=== PATIENT | male | born 1975 | race Caucasian/White ===

== ENCOUNTER 2022-08-10 04:01 | Emergency (ER) | payer OTHER ==
[~2022-08-10] VITALS: Ht 180.3 cm; Wt 124.7 kg
[2022-08-10] MEDS ORDERED: METHOCARBAMOL (500MG) 500 MG TABLET ONE (05:22)
[2022-08-10] MEDS ORDERED: KETOROLAC TROMETHAMINE INJ 30 MG/ML VIAL ONE (05:22)
--- NOTE | 2022-08-10 05:29 | NUR ---
bibs lower back pain x wed worst tonight. On room air, breathing normally and unlabored. Kept comfortable, will continue to monitor accordingly.
[2022-08-10] MEDS ORDERED: KETOROLAC TROMETHAMINE INJ 30 MG/ML VIAL IM ONE (05:30)
[2022-08-10] MEDS ORDERED: METHOCARBAMOL (500MG) 500 MG TABLET PO ONE (05:30)
[2022-08-10] MEDS ORDERED: LIDOCAINE 5% (PATCH) 1 EA PATCH TP SCH (05:30)
[2022-08-10] MEDS ORDERED: METH-649 PO (06:25)
--- NOTE | 2022-08-10 06:30 | NUR ---
Patient discharged to home in stable condition. Written and verbal after care instructions given. Patient verbalizes understanding of instruction. Pt ambulatory with a steady gait
[2022-08-10 06:31] VITALS: BP 145/75
== END 2022-08-10 06:40 | disposition home or self-care (01) ==
LOC: ER 04:05
DX: M54.50 Low back pain, unspecified (principal); Z79.899 Other long term (current) drug therapy
CPT/HCPCS: 99283; 96372; J1885

== ENCOUNTER 2023-10-26 08:54 | Emergency (ER) | payer BC ==
[~2023-10-26] VITALS: Ht 180.3 cm; Wt 127.0 kg
[~2023-10-26 08:54] MED LIST: METH-649 PO
[2023-10-26] MEDS ORDERED: ONDANSETRON HCL/PF 4 MG/2 ML VIAL ONE (09:22)
[2023-10-26] MEDS: LIDOCAINE VISCOUS 2% UD 15 ML UDC MM ONE (09:30)
[2023-10-26] MEDS: ONDANSETRON HCL/PF 4 MG/2 ML VIAL IVP ONE (09:30)
[2023-10-26] MEDS: FAMOTIDINE/PF INJ 20 MG/2 ML VIAL IV ONE (09:30)
[2023-10-26] MEDS: IV NS 0.9% 1,000 ML BAG IV ONE ×2 (09:30→10:30)
[2023-10-26] MEDS: MAG HYDROX/AL HYDROX/SIMETH 30 ML UDC PO ONE (09:30)
[2023-10-26] MEDS ORDERED: FAMOTIDINE/PF INJ 20 MG/2 ML VIAL IV ONE (09:35)
[2023-10-26 09:54] LABS: BASOPHILS # (AUTO) 0.1 K/uL (0.0-0.2); BASOPHILS % (AUTO) 0.6 % (0.0-2.0); EOSINOPHILS # (AUTO) 0.3 K/uL (0.0-0.7); EOSINOPHILS % (AUTO) 1.5 % (0.0-6.0); HEMATOCRIT 47 % (39-51); HEMOGLOBIN 15.6 g/dL (13.5-17.5); LYMPHOCYTES % (AUTO) 17.4 % (20.0-44.0); MEAN CORPUSCULAR HEMOGLOBIN 28 PG (26.0-33.0); MEAN CORPUSCULAR HGB CONC 33 g/dl (31.0-36.0); MEAN CORPUSCULAR VOLUME 86 fL (80-96); MONOCYTES # (AUTO) 0.7 K/uL (0.1-1.30); MONOCYTES % (AUTO) 4.3 % (2.0-12.0); NEUTROPHILS # (AUTO) 13.2 K/uL (1.8-8.9); NEUTROPHILS % (AUTO) 76.2 % (43.0-81.0); PLATELET COUNT (AUTO) 284 K/uL (150-450); RED BLOOD CELL COUNT(AUTO) 5.49 MIL/uL (4.5-6.0); RED CELL DISTRIBUTION WIDTH 14.7 % (11.5-15.0); WHITE BLOOD COUNT (AUTO) 17.3 K/uL (4.3-11.0)
[2023-10-26 09:57] LABS: CALCIUM, SERUM 10.2 mg/dL (8.5-10.1); CARBON DIOXIDE 20 mmol/L (21-32); CHLORIDE 100 mmol/L (98-107); CREATININE 1.3 mg/dL (0.6-1.3); GLUCOSE 184 mg/dL (74-106); POTASSIUM 3.9 mmol/L (3.5-5.1); SODIUM SERUM 136 mmol/L (136-145); UREA NITROGEN, BLOOD 17 mg/dL (7-18)
[2023-10-26 10:11] LABS: ALBUMIN 4.7 g/dL (3.4-5.0); BILIRUBIN,DIRECT 0.1 mg/dL (0.0-0.2); BILIRUBIN,TOTAL 0.4 mg/dL (0.2-1.0); TOTAL PROTEIN, SERUM 8.1 g/dL (6.4-8.2)
[2023-10-26] MEDS ORDERED: MAG HYDROX/AL HYDROX/SIMETH 30 ML UDC ONE (10:11)
[2023-10-26] MEDS ORDERED: LIDOCAINE VISCOUS 2% UD 15 ML UDC ONE (10:12)
[2023-10-26] MEDS: METOCLOPRAMIDE HCL 10 MG/2 ML VIAL IV ONE (10:30)
[2023-10-26] MEDS: diphenhydrAMINE HCL 50 MG/ML VIAL IV ONE (10:30)
[2023-10-26] MEDS ORDERED: diphenhydrAMINE HCL 50 MG/ML VIAL ONE (10:48)
[2023-10-26] MEDS ORDERED: METOCLOPRAMIDE HCL 10 MG/2 ML VIAL ONE (10:49)
[2023-10-26 11:35] VITALS: BP 140/79; TEMP 97.8; O2SAT 99
[2023-10-26] MEDS ORDERED: FAMO-131 PO (11:38)
[2023-10-26] MEDS ORDERED: ONDA4TAB5 PO (11:38)
== END 2023-10-26 11:48 | disposition home or self-care (01) ==
LOC: ER 08:56
DX: R73.9 Hyperglycemia, unspecified (principal); R11.2 Nausea with vomiting, unspecified; R19.7 Diarrhea, unspecified; D72.829 Elevated white blood cell count, unspecified; F12.90 Cannabis use, unspecified, uncomplicated
CPT/HCPCS: 99285; 96374; 96375; 71045; 96361; 93005 ×2; 85025; 80048; 83690; 80076; 36415; 84484 ×2; 82962; J1200; J3490; J2765; J2405; J7030 ×2